=== PATIENT | female | born 1990 | race African-American/Black ===

== ENCOUNTER 2020-02-03 10:46 | Emergency (ER) | payer MEDICAID ==
[~2020-02-03] VITALS: Ht 172.7 cm; Wt 133.8 kg
[2020-02-03 10:49] VITALS: BP 150/98
[2020-02-03] MEDS ORDERED: ONDANSETRON 4MG ODT PO ONE (11:15)
[2020-02-03] MEDS ORDERED: HYDROCODONE/ACETAMINOPHEN 5/325MG TABLET PO ONE (11:15)
== END 2020-02-03 13:05 | disposition home or self-care (01) ==
LOC: ER 11:03
DX: S49.82XA Other specified injuries of left shoulder and upper arm, initial encounter (principal); I10 Essential (primary) hypertension; Z98.890 Other specified postprocedural states; X58.XXXA Exposure to other specified factors, initial encounter; Y93.89 Activity, other specified; Y92.018 Other place in single-family (private) house as the place of occurrence of the external cause
CPT/HCPCS: 29105; 73030; 81025; 99283; Q0162

== ENCOUNTER 2021-02-23 14:23 | Emergency (ER) | payer MEDICAID ==
[~2021-02-23] VITALS: Ht 172.7 cm; Wt 137.0 kg
[~2021-02-23 14:23] MED LIST: OFLO5DRO3 LEFTEYE
[2021-02-23] MEDS ORDERED: KETOROLAC 60MG/2ML VIAL IM ONE (17:00)
[2021-02-23] MEDS ORDERED: HYDR-4001 MT (19:05)
[2021-02-23] MEDS ORDERED: IBUP-2028 MT (19:05)
[2021-02-23] MEDS ORDERED: CYCL10TA7 MT (19:05)
[2021-02-23 19:12] VITALS: BP 147/87
== END 2021-02-23 19:12 | disposition home or self-care (01) ==
LOC: ER 14:23
DX: M54.50 Low back pain, unspecified (principal); I10 Essential (primary) hypertension; Z98.890 Other specified postprocedural states
CPT/HCPCS: 72100; 81025; 96372; 99283; J1885

== ENCOUNTER 2024-03-17 10:22 | Emergency (ER) | payer MEDICAID, OTHER ==
[~2024-03-17] VITALS: Ht 172.7 cm; Wt 113.3 kg
[~2024-03-17 10:22] MED LIST changes: +CYCL10TA21 MT; +HYDR-4001 MT; +IBUP-2028 MT; +OCUFLX LEFTEYE; -OFLO5DRO3 LEFTEYE
[2024-03-17 10:26] VITALS: O2SAT 100
[2024-03-17 11:26] LABS: BASOPHILS % 1.1 % (0.0-2.0); CHLORIDE 106 mEq/L (98-107); EOSINOPHILS % 3.6 % (0.0-5.0); HEMATOCRIT. 33.4 % (36.0-48.0); HEMOGLOBIN. 9.7 g/dL (12.0-16.0); LYMPHOCYTES % 23.1 % (20.0-50.0); MEAN CORPUSCULAR HGB CONC 29.2 g/dL (31.0-37.0); MEAN CORPUSCULAR VOLUME 65.1 fL (81.0-99.0); MEAN PLATELET VOLUME 8.9 fl (7.4-10.4); MONOCYTES % 6.9 % (2.0-8.0); NEUTROPHILS % 65.3 % (40.0-76.0); PLATELET 425 x1000/uL (130-400); POTASSIUM 4.2 mEq/L (3.5-5.1); RED BLOOD CELL COUNT 5.13 mill/uL (4.2-5.4); RED CELL DISTRIBUTION WIDTH 20.1 % (11.6-14.6); SODIUM 137 mEq/L (136-145); WHITE BLOOD COUNT 7.4 x1000/uL (4.5-11.0)
[2024-03-17 11:27] LABS: CALCIUM 9.5 mg/dL (8.7-10.4); CARBON DIOXIDE 23 mEq/L (21-32)
[2024-03-17 11:29] LABS: ADD RBC MORPHOLOGY YES; DIFFERENTIAL COMMENT 1
[2024-03-17 11:32] LABS: CREATININE 0.7 mg/dL (0.6-1.0); GLUCOSE 126 mg/dL (70-105)
[2024-03-17 12:06] LABS: UREA NITROGEN BLOOD < 5 mg/dL (9-23)
[2024-03-17] MEDS: ACETAMINOPHEN 325MG TABLET PO ONE (13:10)
[2024-03-17 13:25] LABS: ANISOCYTOSIS 2+; HYPOCHROMASIA 1+; MICROCYTOSIS 2+
[2024-03-17 13:26] LABS: OVALOCYTES 1+; PLATELET ESTIMATE SLIGHTLY INCREASED
[2024-03-17 13:43] LABS: HEMATOCRIT 32.2 % (36.0-48.0); HEMOGLOBIN 9.6 g/dL (12.0-16.0); MEAN CORPUSCULAR HEMOGLOBIN 19.2 pg (28.0-32.0); MEAN CORPUSCULAR HGB CONC 29.8 g/dL (31.0-37.0); MEAN CORPUSCULAR VOLUME 64.5 fL (81.0-99.0); PLATELET 382 x1000/uL (130-400); RED BLOOD CELL COUNT 4.99 mill/uL (4.2-5.4); WHITE BLOOD COUNT 9.7 x1000/uL (4.5-11.0)
[2024-03-17] MEDS: SODIUM CHLORIDE 0.9% 1,000 ML IV ONE (14:26)
[2024-03-17] MEDS: MORPHINE SULFATE 4 MG/ML INJ (FOR IV/IM USE) IV ONE (14:30)
[2024-03-17] MEDS: ONDANSETRON HCL 4MG/2ML INJ IV ONE (14:30)
[2024-03-17] MEDS ORDERED: OXYTOCIN 30 UNITS/500ML NS 500 ML IV ONE (16:45)
[2024-03-17] MEDS: MISOPROSTOL 200MCG TABLET PO ONE ×2 (16:53→18:00)
[2024-03-17] MEDS ORDERED: IBUP-2029 MT (17:51)
[2024-03-17] MEDS: OXYTOCIN IV ONE (18:13)
[2024-03-17] MEDS: SODIUM CHLORIDE 0.9% IV ONE (18:13)
[2024-03-17 20:00] VITALS: BP 136/97; PULSE 87; RESP 16; TEMP 36.78072; O2SAT 100
== END 2024-03-17 20:00 | disposition home or self-care (01) ==
LOC: ER 10:37 → CANBEDREQ 18:13 → ER 20:00
DX: O03.4 Incomplete spontaneous abortion without complication (principal); O24.111 Pre-existing type 2 diabetes mellitus, in pregnancy, first trimester; O10.911 Unspecified pre-existing hypertension complicating pregnancy, first trimester; Z98.890 Other specified postprocedural states; Z3A.12 12 weeks gestation of pregnancy
CPT/HCPCS: 80048; 84702; 85027; 85025; 86850; 86900; 86901; 36415; 88305; 76801; 76817; 96361; 96365; 96375; 99285; J2405; J2270; J7040; J7030; Z7610 ×4; J2590